=== PATIENT | male | born 1985 ===

== ENCOUNTER 2016-08-04 12:47 | Inpatient (IN) | payer OTHER ==
[~2016-08-04] VITALS: Ht 172.7 cm; Wt 101.8 kg
[2016-08-04] MEDS ORDERED: LORAZEPAM 2 MG/ML 1 ML VIAL IV STA ×2 (13:07→14:24)
[2016-08-04] MEDS ORDERED: SODIUM CHLORIDE 0.9% 1000ML 1,000 ML IV STA (13:07)
[2016-08-04 13:31] LABS: BASO % 0.3 %; BASO ABS # 0.03 K/uL (0-0.2); COMPLETE YES; EOS % 0.1 %; HEMATOCRIT 45.4 % (42-52); IG% 0.4 %; LYMPH % 20.2 %; LYMPH ABS # 2.19 K/uL (1.2-3.4); MEAN CELL VOLUME 89.4 fL (80-100); MEAN CORPUSCULAR HEMOGLOBIN 31.9 pg (25-34); MEAN CORPUSCULAR HGB CONC 35.7 g/dl (32-36); MEAN PLATELET VOLUME 10.4 fL (7.4-10.4); MONO % 6.7 %; NEUT % 72.3 %; PLATELET COUNT 349 K/uL (130-400); RED BLOOD COUNT 5.08 M/uL (4.7-6.1); WHITE BLOOD COUNT 10.82 K/uL (4.8-10.8)
--- NOTE | 2016-08-04 13:40 | DIAGNOSTIC IMAGING REPORT ---
CHEST ONE VIEW PORTABLE CLINICAL HISTORY: Overdose dyspnea COMPARISON STUDY: No previous studies for comparison. FINDINGS: The bones soft tissues and hemidiaphragms are normal. The cardiomediastinal silhouette is normal. The lungs are clear. The pulmonary vasculature is normal. IMPRESSION: Negative chest. Electronically signed by: Amarjit Aguilar M.D. 08/04/2016 1:39 PM Dictated Date/Time: 08/04/2016 1:38 PM
[2016-08-04 13:46] LABS: PARTIAL THROMBOPLASTIN RATIO 1.1; PROTHROMBIN TIME (PATIENT) 10.8 SECONDS (9.0-12.0)
[2016-08-04 13:50] LABS: URINE APPEARANCE CLEAR (CLEAR); URINE BILIRUBIN NEG (NEG); URINE COLOR YELLOW; URINE EPITHELIAL CELL AUTO 20-30 /lpf (0-5); URINE NITRITE NEG (NEG); URINE SPECIFIC GRAVITY 1.028 (1.000-1.030); UROBILINOGEN NEG (NEG)
[2016-08-04 13:51] LABS: ALT/SGPT 36 U/L (12-78); AST/SGOT 20 U/L (15-37); BLOOD UREA NITROGEN 11 mg/dl (7-18); BUN/CREATININE RATIO 13.2 (10-20); CALCIUM 8.9 mg/dl (8.5-10.1); CARBON DIOXIDE 21 mmol/L (21-32); CHLORIDE 109 mmol/L (98-107); CREATININE 0.85 mg/dl (0.60-1.40); GLUCOSE 108 mg/dl (70-99); POTASSIUM 4.1 mmol/L (3.5-5.1); SODIUM 140 mmol/L (136-145)
[2016-08-04 13:51] LABS: MANUAL MICROSCOPIC REQUIRED? NO; REVIEW REQ? NO
[2016-08-04 13:56] LABS: ALKALINE PHOSPHATASE 50 U/L (45-117)
[2016-08-04 14:01] LABS: BENZODIAZEPINE, URINE NEG (NEG); COCAINE,URINE NEG (NEG); PHENCYCLIDINE, URINE NEG (NEG)
[2016-08-04 14:18] LABS: ACETAMINOPHEN < 2 ug/ml (10-30)
[2016-08-04] MEDS ORDERED: XYLOCAINE 1%/SOD BICARB 20 ML VIAL INFIL ONE (15:00)
--- NOTE | 2016-08-04 15:58 | EMERGENCY ROOM VISIT NOTE ---
ED Visit Note Emergency Department Procedure Note I was asked to see Mr. Beyer by Dr. Skip Worthington, emergency medicine, for repair of a neck laceration he sustained in a suicide attempt. Please see Dr. Worthington's notes and orders for full information about his ED visit. Wound Repair: Complexity: Basic. Description: Approximately 12 cm laceration over the anterior neck; approximately 10 cm of the laceration is superficial and 2.4 cm of the laceration is full-thickness and is positioned just inferior to the larynx. No active bleeding. Verbal consent was obtained after the risks and benefits were explained. The skin was prepped with betadine and a sterile field set. Wound edges of the wound was anesthetized with 3.1 ml buffered 1% lidocaine. The wound was explored for foreign bodies and none found. Copious irrigation was performed using sterile saline. With direct pressure the bleeding subsided. Debridement was not performed. The wound edges were approximated using 6-0 Ethilon with 7 simple interrupted sutures. Hemostasis and excellent approximation was achieved. Antibacterial ointment and a sterile dressing applied. No complications and the patient tolerated the procedure well.
--- NOTE | 2016-08-04 16:25 | History and Physical ---
History & Physical Date & Time of Service: Aug 04, 2016 at 16:05 Chief Complaint: Benadryl Overdose@3AM/ Depression Primary Care Physician: No Doctor, Assigned History of Present Illness Source: patient Patient is a 30 year old male that presents 12 hours after an intentional overdose with diphenhydramine. The patient took 600mg (24 tabs of 25mg of Benadryl) this morning at 3am, after which he was drowsy and laid down in bed trying to sleep. He then tried to cut his throat shortly thereafter at 9am with a kitchen knife. He subsequently called the Crisis Line about his attempted suicide who called an ambulance. He also had a glass of wine last night. He said that throughout the morning he was having numbness and tingling of his extremities but that has now resolved. 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 He has no past history of suicide attempts or diagnosed depression. He has no significant medical history other than an appendectomy. He currently feels well with no further complaints and denies chest pain, shortness of breath , blurriness of vision, or agitation. Past Medical/Surgical History No active issues Family History Patient reports no known family medical history. Social History Smoking Status: Never Smoker Smokeless Tobacco Use: No Alcohol Use: socially Drug Use: none Marital Status: single Allergies Coded Allergies: Aspirin (Verified Allergy, Unknown, family blood disorder, 08/04/16) Home Medications No Active Prescriptions or Reported Meds Review of Systems Constitutional: No fever, No chills Eyes: No worsening of vision ENT: No hearing loss Respiratory: No cough, No shortness of breath Cardiovascular: No chest pain Abdomen: No pain, No nausea, No vomiting, No diarrhea, No constipation Neurologic: No memory loss, No weakness Endocrine: No fatigue Integumentary: No rash, No itch Physical Exam Vital Signs Date Time Temp Pulse Resp B/P (MAP) Pulse Ox O2 Delivery O2 Flow Rate FiO2 08/04/16 13:32 17 08/04/16 13:31 138/96 08/04/16 13:28 94 Room Air 08/04/16 13:17 21 08/04/16 13:10 94 Room Air 08/04/16 13:10 121 08/04/16 13:08 141/91 08/04/16 12:57 37.5 124 18 156/109 93 Room Air General Appearance: WD/WN, no apparent distress Head: normocephalic, atraumatic Eyes: normal inspection, sclerae normal Neck: supple, + pertinent finding (2 neck lacerations of 12 cm above one another, with [address] at the middle aspect of the inferior suture, c/d/ i) Respiratory/Chest: chest non-tender, lungs clear, normal breath sounds Cardiovascular: no edema, no gallop, + tachycardia Abdomen/GI: normal bowel sounds, non tender, soft Extremities/Musculoskelatal: normal inspection, no calf tenderness, non-tender 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 tested, no motor/sensory deficits, alert, normal mood/affect, oriented x 3 Skin: normal color Diagnostics Laboratory Results Results Past 24 Hours Test 08/04/16 13:03 08/04/16 13:15 08/04/16 13:18 Range/Units Urine Color YELLOW Urine Appearance CLEAR CLEAR Urine pH 5.0 4.5-7.5 Urine Specific [place] 1.028 1.000-1.030 Urine Protein NEG NEG Urine Glucose (UA) NEG NEG Urine Ketones NEG NEG Urine Occult Blood NEG NEG Urine Nitrite NEG NEG Urine Bilirubin NEG NEG Urine Urobilinogen NEG NEG Urine Leukocyte Esterase TRACE NEG Urine WBC (Auto) 1-5 0-5 /hpf Urine RBC (Auto) 0-4 0-4 /hpf Urine Hyaline Casts (Auto) 1-5 0-5 /lpf Urine Epithelial Cells (Auto) 20-30 0-5 /lpf Urine Bacteria (Auto) NEG NEG Urine Opiates Screen NEG NEG Urine Methadone, Qualitative NEG NEG Urine Barbiturates NEG NEG Urine Phencyclidine (PCP) Level NEG NEG Ur Amphetamine/Methamphetamine NEG NEG MDMA (Ecstasy) Screen NEG NEG Urine Benzodiazepines Screen NEG NEG Urine Cocaine Metabolite NEG NEG Urine Marijuana (THC) NEG NEG White Blood Count 10.82 4.8-10.8 K/uL Red Blood Count 5.08 4.7-6.1 M/uL Hemoglobin 16.2 14.0-18.0 g/dL Hematocrit 45.4 42-52 % Mean Corpuscular Volume 89.4 80-100 fL Mean Corpuscular Hemoglobin 31.9 25-34 pg Mean Corpuscular Hemoglobin Concent 35.7 32-36 g/dl Platelet Count 349 130-400 K/uL Mean Platelet Volume 10.4 7.4-10.4 fL Neutrophils (%) (Auto) 72.3 % Lymphocytes (%) (Auto) 20.2 % Monocytes (%) (Auto) 6.7 % Eosinophils (%) (Auto) 0.1 % Basophils (%) (Auto) 0.3 % Neutrophils # (Auto) 7.82 1.4-6.5 K/uL Lymphocytes # (Auto) 2.19 1.2-3.4 K/uL Monocytes # (Auto) 0.73 0.11-0.59 K/uL Eosinophils # (Auto) 0.01 0-0.5 K/uL Basophils # (Auto) 0.03 0-0.2 K/uL RDW Standard Deviation 40.6 36.4-46.3 fL RDW Coefficient of Variation 12.4 11.5-14.5 % Immature Granulocyte % (Auto) 0.4 % Immature Granulocyte # (Auto) 0.04 0.00-0.02 K/uL Prothrombin Time 10.8 9.0-12.0 SECONDS Prothromb Time International Ratio 1.0 0.9-1.1 Activated Partial Thromboplast Time 28.4 21.0-31.0 SECONDS Partial Thromboplastin Ratio 1.1 Sodium Level 140 136-145 mmol/L Potassium Level 4.1 3.5-5.1 mmol/L Chloride Level 109 98-107 mmol/L Carbon Dioxide Level 21 21-32 mmol/L Anion Gap 10.0 3-11 mmol/L Blood Urea Nitrogen 11 7-18 mg/dl Creatinine 0.85 0.60-1.40 mg/dl Est Creatinine Clear Calc Drug Dose 145.1 ml/min Estimated GFR () 134.6 Estimated GFR (Non- 116.1 BUN/Creatinine Ratio 13.2 10-20 Random Glucose 108 70-99 mg/dl Calcium Level 8.9 8.5-10.1 mg/dl Total Bilirubin 0.6 0.2-1 mg/dl Direct Bilirubin 0.2 0-0.2 mg/dl Aspartate Amino Transf (AST/SGOT) 20 15-37 U/L Alanine Aminotransferase (ALT/SGPT) 36 12-78 U/L Alkaline Phosphatase 50 45-117 U/L Total Creatine Kinase 119 39-308 U/L Troponin I < 0.015 0-0.045 ng/ml Total Protein 8.6 6.4-8.2 gm/dl Albumin 4.4 3.4-5.0 gm/dl Lipase 110 73-393 U/L Salicylates Level < 1.7 2.8-20 mg/dl Acetaminophen Level < 2 10-30 ug/ml Ethyl Alcohol mg/dL < 3.0 0-3 mg/dl Bedside Glucose 116 70-99 mg/dl Impression Assessment and Plan Patient is a 30 year old male that presents after an intentional diphenhydramine overdose early this morning 1) Diphenhydramine overdose - Admit to Telemetry due to tachycardia - 12.5mg Metoprolol PO NOW - One to one at bedside - 2 doses of Ativan in ED - Continue to monitor heart rate - Consult psychiatry for movement to [address] [place] [address] after medically stable - Tox Screen Normal - CBC, CMP within normal limits - Normal Troponin 2) Laceration over throat - 6 sutures placed - One to one at bedside 3) Disposition - Admit to Telemetry - Transfer to [address] once medically stable Resident Physician Supervision Note: Pt seen/examined independently. I discussed the case with the resident and agree with the findings and plan as documented in the note. Any exceptions or clarifications are listed here: 30 y/o M depression - no active medical issues Pt intentionally overdosed on Benadryl and self inflicted superficial lacerations to his own throat. Called crisis line who alerted EMS. He is tachycardic but otherwise asymptomatic at time of arrival - alert and cooperative AAO x 3 S1,2 R tachy CTAB NT,ND No CCE P: IVF - supportive measure Mental health consulted Received a tetanus shot Transfer to [facility] when clinically stable Documented By: Jake Franklin Level of Care Telemetry VTE Prophylaxis VTE Risk Assessment Done? Y/N: Yes Risk Level: Low
[2016-08-04 16:35] VITALS: BP 176/97; PULSE 134; TEMP 37; O2SAT 95; Ht 172.7 cm; Wt 101.8 kg
[2016-08-04] MEDS ORDERED: METOPROLOL TARTRATE 25 MG TAB PO ONE (17:00)
[2016-08-04 19:54] VITALS: BP 131/89; PULSE 104; TEMP 36.8; O2SAT 95
--- NOTE | 2016-08-04 20:31 | EMERGENCY ROOM VISIT NOTE ---
History Report prepared by Katya: Jose Harrington Under the Supervision of: Dr. Skip Worthington D.O. First contact with patient: 13:02 Chief Complaint: PSYCHIATRIC PROBLEMS Stated Complaint: BENADRYL OVERDOSE@3AM/ DEPRESSION History of Present Illness The patient is a 30 year old male who presents to the Emergency Room with complaints of a sudden overdose at 0300. 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 The patient states that "he does not want to be here anymore". He admits that he took the 25 caps of ZzzQuil, 25 mg of Benadryl , with intents of killing himself at 0300. The patient admits to numbness in fingers. The patient denies taking any aspiring or Tylenol. He denies past depression or anxiety, but admits he has been feeling it recently. The patient denies headache, change in vision, fevers, chest pain, shortness of breath, nausea, vomiting, diarrhea, pain with urination, and melena. Source of History: patient Onset: 0300 Position: other (global) Timing: other (sudden) Modifying Factors (Worsening): other (ZZZquil) Associated Symptoms: No fevers, No headache, No chest pain, No SOB, No nausea, No vomiting, No diarrhea, No urinary symptoms Review of Systems See HPI for pertinent positives & negatives. A total of 10 systems reviewed and were otherwise negative. Past Medical & Surgical Medical Problems: (1) Anticholinergic drug overdose (2) Attempted suicide (3) Depression (4) Intentional diphenhydramine overdose (5) Tachycardia Family History Patient reports no known family medical history. Social History Smoking Status: Unknown if Ever Smoked Smokeless Tobacco Use: Unknown Occupation Status: student Current/Historical Medications No Active Prescriptions or Reported Meds Allergies Coded Allergies: Aspirin (Verified Allergy, Unknown, family blood disorder, 08/04/16) Physical Exam Vital Signs Date Time Temp Pulse Resp B/P (MAP) Pulse Ox O2 Delivery O2 Flow Rate FiO2 08/04/16 16:01 146/94 08/04/16 15:37 127 19 95 08/04/16 15:31 144/88 08/04/16 15:07 121 16 95 08/04/16 15:01 154/105 08/04/16 14:37 123 19 96 08/04/16 14:31 148/90 08/04/16 14:07 125 20 97 08/04/16 14:01 147/95 08/04/16 13:37 129 22 95 08/04/16 13:32 17 08/04/16 13:31 138/96 08/04/16 13:28 94 Room Air 08/04/16 13:17 21 08/04/16 13:10 94 Room Air 08/04/16 13:10 121 08/04/16 13:08 141/91 08/04/16 12:57 37.5 124 18 156/109 93 Room Air Physical Exam GENERAL: Sitting up in bed disheveled alert, well appearing, well nourished, non -toxic EYE EXAM: normal conjunctiva, PERRL and EOM's grossly intact OROPHARYNX: no exudate, no erythema, lips, buccal mucosa, and tongue normal and mucous membranes are moist NECK: 2.5 cm laceration linear supple, no nuchal rigidity, no adenopathy, non- tender LUNGS: Clear to auscultation. Normal chest wall mechanics HEART: Tachycardic no murmurs, S1 normal and S2 normal ABDOMEN: abdomen soft, non-tender, normo-active bowel sounds, no masses, no rebound or guarding. BACK: Back is symmetrical on inspection and there is no deformity, no midline tenderness, no CVA tenderness. SKIN: no rashes and no bruising UPPER EXTREMITIES: upper extremities are grossly normal. LOWER EXTREMITIES: No pitting edema. NEURO EXAM: Normal sensorium, cranial nerves II-XII grossly intact, normal speech, no gross weakness of arms, no gross weakness of legs. Gross sensation intact. Medical Decision & Procedures ER Provider Diagnostic Interpretation: Radiology results as stated below per my review and the radiologist's interpretation: CHEST ONE VIEW PORTABLE CLINICAL HISTORY: Overdose dyspnea COMPARISON STUDY: No previous studies for comparison. FINDINGS: The bones soft tissues and hemidiaphragms are normal. The cardiomediastinal silhouette is normal. The lungs are clear. The pulmonary vasculature is normal. IMPRESSION: Negative chest. Electronically signed by: Amarjit Aguilar M.D. 08/04/2016 1:39 PM Dictated Date/Time: 08/04/2016 1:38 PM Laboratory Results 08/04/16 13:15 Red Blood Count 5.08, Mean Corpuscular Volume 89.4, Mean Corpuscular Hemoglobin 31.9, Mean Corpuscular Hemoglobin Concent 35.7, Mean Platelet Volume 10.4, Neutrophils (%) (Auto) 72.3, Lymphocytes (%) (Auto) 20.2, Monocytes (%) (Auto) 6.7, Eosinophils (%) (Auto) 0.1, Basophils (%) (Auto) 0.3, Neutrophils # (Auto) 7.82, Lymphocytes # (Auto) 2.19, Monocytes # (Auto) 0.73, Eosinophils # (Auto) 0.01, Basophils # (Auto) 0.03 08/04/16 13:15 Test 08/04/16 13:03 08/04/16 13:15 08/04/16 13:18 Urine Color YELLOW Urine Appearance CLEAR (CLEAR) Urine pH 5.0 (4.5-7.5) Urine Specific [place] 1.028 (1.000-1.030) Urine Protein NEG (NEG) Urine Glucose (UA) NEG (NEG) Urine Ketones NEG (NEG) Urine Occult Blood NEG (NEG) Urine Nitrite NEG (NEG) Urine Bilirubin NEG (NEG) Urine Urobilinogen NEG (NEG) Urine Leukocyte Esterase TRACE (NEG) Urine WBC (Auto) 1-5 /hpf (0-5) Urine RBC (Auto) 0-4 /hpf (0-4) Urine Hyaline Casts (Auto) 1-5 /lpf (0-5) Urine Epithelial Cells (Auto) 20-30 /lpf (0-5) Urine Bacteria (Auto) NEG (NEG) Urine Opiates Screen NEG (NEG) Urine Methadone, Qualitative NEG (NEG) Urine Barbiturates NEG (NEG) Urine Phencyclidine (PCP) Level NEG (NEG) Ur Amphetamine/Methamphetamine NEG (NEG) MDMA (Ecstasy) Screen NEG (NEG) Urine Benzodiazepines Screen NEG (NEG) Urine Cocaine Metabolite NEG (NEG) Urine Marijuana (THC) NEG (NEG) White Blood Count 10.82 K/uL (4.8-10.8) Red Blood Count 5.08 M/uL (4.7-6.1) Hemoglobin 16.2 g/dL (14.0-18.0) Hematocrit 45.4 % (42-52) Mean Corpuscular Volume 89.4 fL (80-100) Mean Corpuscular Hemoglobin 31.9 pg (25-34) Mean Corpuscular Hemoglobin Concent 35.7 g/dl (32-36) Platelet Count 349 K/uL (130-400) Mean Platelet Volume 10.4 fL (7.4-10.4) Neutrophils (%) (Auto) 72.3 % Lymphocytes (%) (Auto) 20.2 % Monocytes (%) (Auto) 6.7 % Eosinophils (%) (Auto) 0.1 % Basophils (%) (Auto) 0.3 % Neutrophils # (Auto) 7.82 K/uL (1.4-6.5) Lymphocytes # (Auto) 2.19 K/uL (1.2-3.4) Monocytes # (Auto) 0.73 K/uL (0.11-0.59) Eosinophils # (Auto) 0.01 K/uL (0-0.5) Basophils # (Auto) 0.03 K/uL (0-0.2) RDW Standard Deviation 40.6 fL (36.4-46.3) RDW Coefficient of Variation 12.4 % (11.5-14.5) Immature Granulocyte % (Auto) 0.4 % Immature Granulocyte # (Auto) 0.04 K/uL (0.00-0.02) Prothrombin Time 10.8 SECONDS (9.0-12.0) Prothromb Time International Ratio 1.0 (0.9-1.1) Activated Partial Thromboplast Time 28.4 SECONDS (21.0-31.0) Partial Thromboplastin Ratio 1.1 Anion Gap 10.0 mmol/L (3-11) Est Creatinine Clear Calc Drug Dose 145.1 ml/min Estimated GFR () 134.6 Estimated GFR (Non- 116.1 BUN/Creatinine Ratio 13.2 (10-20) Calcium Level 8.9 mg/dl (8.5-10.1) Total Bilirubin 0.6 mg/dl (0.2-1) Direct Bilirubin 0.2 mg/dl (0-0.2) Aspartate Amino Transf (AST/SGOT) 20 U/L (15-37) Alanine Aminotransferase (ALT/SGPT) 36 U/L (12-78) Alkaline Phosphatase 50 U/L (45-117) Total Creatine Kinase 119 U/L (39-308) Troponin I < 0.015 ng/ml (0-0.045) Total Protein 8.6 gm/dl (6.4-8.2) Albumin 4.4 gm/dl (3.4-5.0) Lipase 110 U/L (73-393) Salicylates Level < 1.7 mg/dl (2.8-20) Acetaminophen Level < 2 ug/ml (10-30) Ethyl Alcohol mg/dL < 3.0 mg/dl (0-3) Bedside Glucose 116 mg/dl (70-99) Laboratory results per my review. Medications Administered Medications (Trade) Dose Ordered Sig/Tre Route Start Time Stop Time Status Last Admin Dose Admin Sodium Chloride 1,000 ml @ 999 mls/hr Q1H1M STAT IV 08/04/16 13:07 08/04/16 14:07 DC 08/04/16 13:33 999 MLS/HR Lorazepam (Ativan Inj) 1 mg NOW STAT IV 08/04/16 13:07 08/04/16 13:09 DC 08/04/16 13:34 1 MG Lorazepam (Ativan Inj) 1 mg NOW STAT IV 08/04/16 14:24 08/04/16 14:25 DC 08/04/16 14:51 1 MG ECG Indication: other (overdose) Rate (beats per minute): 121 Rhythm: sinus tachycardia Findings: no ectopy, other (normal axis) ED Course ED COURSE: Vital signs were reviewed and showed tachycardic and hypertension. The patients medical record was reviewed The above diagnostic studies were performed and reviewed. ED treatments and interventions as stated above. Medication Reconciliation: I attest that I have personally reviewed the patient' s current medication list. 1301: The patient was evaluated in room A03. A complete history and physical examination was performed. 1307: Ativan Injection 1 mg IV, Sodium Chloride 1000 ml @ 999 mls/hr IV. 1335: I talked with poison control and they recommended fluids. 1424: Ativan Injection 1 mg IV. 1444: I reevalutated the patient and he is resting comfortably. I spoke with Dr. Franklin, [facility] Hospitalist. He understands the patent's condition and agrees to accept the patient. The patient will be further evaluated. Medical Decision Differential diagnoses includes but is not limited to toxic, metabolic, infectious, traumatic, cardiac, neurologic, hematologic, psychiatric and inflammatory etiologies. Patient is a 30-year-old male who presents the ER for taking 25 tabs of Benadryl which were 25 mg apiece to kill himself. He also cut his neck as well. He has a small 2 cm laceration was repaired by my PA. Patient has not complaints but did feel his heart racing. He was tachycardic in the 130s. He was given 2 doses of IV Ativan. Heart rate did come down slightly secondary to the anticholinergic overdose. I did discuss his case with poison control and they agreed with the treatment of Ativan. EKG was unremarkable. He was monitored closely and admitted to internal medicine for sinus tachycardia secondary to anticholinergic overdose. He was noted to internal medicine for suicidal evaluations with anticholinergic overdose. Consults Time Called: 1335 Consulting Physician: Poison control Returned Call: 1335 I talked with poison control regarding the patient's case and they recommended fluids Additional Consults: Time Called: 1444 Consulted Physician: Dr. Franklin [facility] Hospitalist Returned Call: 1444 Additional Comments: I reevalutated the patient and he is resting comfortably. I spoke with Dr. Franklin, [facility] Hospitalist. He understands the patent's condition and agrees to accept the patient. The patient will be further evaluated. Impression Primary Impression: Anticholinergic drug overdose Additional Impressions: Attempted suicide Intentional diphenhydramine overdose Laceration Critical Care I have personally spent 35 minutes of critical care time in the direct management of this patient. This includes bedside care, interpretation of diagnostic studies, and testing, discussion with consultants, patient, and family members, and other required patient management activities. This 35 minutes is in excess of all separately billable procedures. Scribe Attestation The scribe's documentation has been prepared under my direction and personally reviewed by me in its entirety. I confirm that the note above accurately reflects all work, treatment, procedures, and medical decision making performed by me. Departure Information Dispostion Being Evaluated By Hospitalist (Dr. Franklin) Prescriptions No Active Prescriptions or Reported Meds Referrals No Doctor, Assigned (PCP) Patient Instructions My [facility] Problem Qualifiers Primary Impression: Anticholinergic drug overdose Encounter type: initial encounter Injury intent: intentional self-harm Qualified Codes: T44.3X2A - Poisoning by other parasympatholytics [ anticholinergics and antimuscarinics] and spasmolytics, intentional self-harm, initial encounter Additional Impressions: Intentional diphenhydramine overdose Encounter type: initial encounter Qualified Codes: T45.0X2A - Poisoning by antiallergic and antiemetic drugs, intentional self-harm, initial encounter
[2016-08-04] MEDS ORDERED: NURSING VERBAL MED ORDER ONE (22:00)
[2016-08-04] MEDS ORDERED: LORAZEPAM 0.5 MG TAB PO PRN (22:30)
[2016-08-04 23:11] VITALS: BP 141/93; PULSE 104; TEMP 36.9; O2SAT 96
[2016-08-05] VITALS: O2SAT 96
[2016-08-05 03:44] VITALS: BP 108/63; PULSE 96; TEMP 36.8; O2SAT 97
[2016-08-05 04:00] VITALS: O2SAT 97
[2016-08-05 07:20] VITALS: BP 138/93; PULSE 93; TEMP 36.4; O2SAT 97
--- NOTE | 2016-08-05 11:41 | Medical Student: BHU Only ---
Psychiatric Evaluation Medical In-patient Psychiatric Consult IDENTIFYING DATA: James Beyer is a 30-year-old male who was born in [facility] but is currently living in [place], [place]. There is a current 302 petition on his chart if needed. CHIEF COMPLAINT: "feeling numb for the past 2 weeks". HISTORY OF PRESENT ILLNESS: James denies any past psychiatric history, but acknowledges that he took 24 tabs of 25mg Benedryl at 3am on 08/04/2016 with suicidal ideation. He then states that at 9am on 08/04/2016 he used a kitchen knife to slice his throat, again with suicidal ideation, which required 6 sutures in the ED at [facility]. 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 He notes associated symptoms of changes in his sleeping patterns, from sleeping 11pm-7am each night to difficulty falling asleep until 5am and sleeping until noon each day. James notes that for the past 2 weeks he has had intermittent suicidal ideations without a specific plan until 2016. He specifically denies any current suicidal ideation. James also denies change in his levels of energy, concentration, appetite, psychomotor skills, and interest in things he normally enjoys. He states he only has funding for his PhD program through the summer, but does not think he will finish his project in time. He reports if he does not finish his degree before going back to [facility], he will have to pay back his program fee of about $200,000; however if he finishes his PhD, he denies accruing any student loan debt. James states that his current plan is to leave [place] and go back to [facility], where his entire support system (outside of 2 friends in the area) reside. He notes that once he is back in [facility], he will figure out the financial repercussions remotely. Patient denies access to guns, feelings of anxiety, heart palpitations, panic, chest pain, psychosis, previous eating disorder, OCD tendencies, PTSD, and symptoms of leann. Risk of violence to self within the last 6 months: yes, suicide attempt 2016 (see HPI for more information). Patient denies any other history of suicidal attempts or violence to self in last 6 months, including other self- injurious behavior. Risk of violence to others within the last 6 months: no. Patient states he has "never had any ideas to hurt others." CURRENT HOME MEDICATIONS: Reported Home Medications Medications Dose Route/Sig Max Daily Dose Days Date Category No Active Prescriptions or Reported Medications Rx PAST PSYCHIATRIC HISTORY: Current outpatient mental health treatment: patient denies. Prior outpatient mental health treatment: patient denies. Prior psychiatric hospitalizations: patient denies. Prior medication trials: patient denies. Prior suicide attempts: patient denies any suicide attempts prior to 08/04/2016. Access to weapons: patient denies access to weapons. PAST MEDICAL HISTORY: Current primary care practitioner is [facility], but no specific primary care provider. medical history: patient denies surgical history: patient denies history of head injury: patient denies history of seizure: patient denies history of iv drug use: patient denies ALLERGIES: Aspirin. FAMILY HISTORY: Mental Health: patient denies Substance Abuse: paternal grandfather was an alcoholic Suicide: patient denies SUBSTANCE USE HISTORY: Patient denies any substance abuse. PERSONAL HISTORY: Born: [facility]. Parents and patient's whole support system (outside a couple of friends in the area) live in [facility]. Early development: patient denies any issues or delays in developmental milestones. Education: currently writing his thesis statement for his PhD at [employer]. 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 Relationship History: single. Children: patient denies. Legal History: patient denies history of DUIs or disorderly conducts. Physical abuse history: patient denies. Emotional/psychological abuse history: patient denies. ROS: CONSTITUTIONAL: patient denies. HEENT: patient denies. SKIN: patient denies. CARDIOVASCULAR: patient specifically denies heart palpitations. RESPIRATORY: patient denies. GASTROINTESTINAL: patient denies. GENITOURINARY: patient denies. NEUROLOGICAL: patient denies. MUSCULOSKELETAL: patient denies. PSYCHIATRIC: patient denies current suicidal ideations since being in the hospital. Vital Signs Past 12 Hours Date Time Temp Pulse Resp B/P (MAP) Pulse Ox O2 Delivery O2 Flow Rate FiO2 08/05/16 07:20 36.4 93 18 138/93 (108) 97 Room Air 08/05/16 04:00 97 Room Air 08/05/16 03:44 36.8 96 16 108/63 (78) 97 Room Air 08/05/16 00:00 96 Room Air Labs Past 24 hours Test 08/04/16 13:03 08/04/16 13:15 08/04/16 13:18 Urine Color YELLOW Urine Appearance CLEAR Urine pH 5.0 Urine Specific [place] 1.028 Urine Protein NEG Urine Glucose (UA) NEG Urine Ketones NEG Urine Occult Blood NEG Urine Nitrite NEG Urine Bilirubin NEG Urine Urobilinogen NEG Urine Leukocyte Esterase TRACE Urine WBC (Auto) 1-5 Urine RBC (Auto) 0-4 Urine Hyaline Casts (Auto) 1-5 Urine Epithelial Cells (Auto) 20-30 Urine Bacteria (Auto) NEG Urine Opiates Screen NEG Urine Methadone, Qualitative NEG Urine Barbiturates NEG Urine Phencyclidine (PCP) Level NEG Ur Amphetamine/Methamphetamine NEG MDMA (Ecstasy) Screen NEG Urine Benzodiazepines Screen NEG Urine Cocaine Metabolite NEG Urine Marijuana (THC) NEG White Blood Count 10.82 Red Blood Count 5.08 Hemoglobin 16.2 Hematocrit 45.4 Mean Corpuscular Volume 89.4 Mean Corpuscular Hemoglobin 31.9 Mean Corpuscular Hemoglobin Concent 35.7 Platelet Count 349 Mean Platelet Volume 10.4 Neutrophils (%) (Auto) 72.3 Lymphocytes (%) (Auto) 20.2 Monocytes (%) (Auto) 6.7 Eosinophils (%) (Auto) 0.1 Basophils (%) (Auto) 0.3 Neutrophils # (Auto) 7.82 Lymphocytes # (Auto) 2.19 Monocytes # (Auto) 0.73 Eosinophils # (Auto) 0.01 Basophils # (Auto) 0.03 RDW Standard Deviation 40.6 RDW Coefficient of Variation 12.4 Immature Granulocyte % (Auto) 0.4 Immature Granulocyte # (Auto) 0.04 Prothrombin Time 10.8 Prothrombin Time INR 1.0 PTT 28.4 Partial Thromboplastin Ratio 1.1 Sodium Level 140 Potassium Level 4.1 Chloride Level 109 Carbon Dioxide Level 21 Anion Gap 10.0 Blood Urea Nitrogen 11 Creatinine 0.85 Est Creatinine Clear Calc Drug Dose 145.1 Estimated GFR () 134.6 Estimated GFR (Non- 116.1 BUN/Creatinine Ratio 13.2 Random Glucose 108 Calcium Level 8.9 Total Bilirubin 0.6 Direct Bilirubin 0.2 Aspartate Amino Transferase (AST) 20 Alanine Aminotransferase (ALT) 36 Alkaline Phosphatase 50 Total Creatine Kinase 119 Troponin I < 0.015 Total Protein 8.6 Albumin 4.4 Lipase 110 Salicylates Level < 1.7 Acetaminophen Level < 2 Ethyl Alcohol mg/dL < 3.0 POC Glucose 116 MENTAL STATUS EXAM: Appearance is that of a casually and appropriately dressed male who appears his stated age. The patient is generally cooperative with the interview. Eye contact is good. No abnormal motor behavior. Speech: normal volume, rate, and tone. Affect: isolation of affect. Mood: "numb , not feeling much". Thought process: clear, linear, rational. Thought content: minimizing current situation. Patient denies current suicidal or homicidal ideations. Perception: reality based without delusions. Cognition: memory, language, and attention appear grossly intact. Intelligence seems consistent with level of education Insight is estimated to be limited. Judgment is estimated to be limited. INVENTORY OF ASSETS: * strengths: continued interest in activities he enjoys (reading/watching tv), plans for the future * resources: supportive family in [facility] and supportive friends in the area, desire to seek psychiatric treatment in [facility] once he returns there * needs: follow-up psychiatric treatment, both in [place] and in [facility] depending on where he will be living. RISK ASSESSMENT: * Risk factors (select all that apply): Male, single, lack of extensive support system in the area, lack of out-patient mental health providers, impulsive attempt * Protective factors (select all that apply): Employed, Stable relationships, Supportive family, Absence of risk factors (, fall in social status, access to guns, chronic health conditions, history of any mental health diagnosis/substance abuse disorders, history of previous suicidal attempt, family history of suicide, previous psychiatric hospitalization, and feeling of hopelessness). DIAGNOSTIC IMPRESSION: James is a 30 year old male, with recent intentional overdose on Benadryl and suicidal intention using a knife to cut his throat on 08/04/2016. His recent suicidal attempt seems situational to finishing his PhD and lacking his main familial support system in the area. He has no history of previously diagnosed psychiatric condition, but with current threat to his safety, in-patient hospitalization is recommended. Patient does not meet criteria of major depressive episode/disorder, making adjustment disorder or unspecified depressive disorder more likely. DSM-V DIAGNOSIS: Unspecified depressive disorder RECOMMENDATIONS: 1. Safety, secondary to recent history of suicidal ideation a. In-patient psychiatry for patient's safety. Ask patient to sign-in voluntarily, but also acknowledge his 302 petition in his chart if he refuses to sign-in voluntarily. b. Suicide precautions will be maintained to help provide for patient safety while in the hospital. 2. Unspecified depressive disorder a. Work with Medical team to transfer to U once patient is cleared medically. b. Talk with patient about starting SSRI for depression once in-patient psychiatry. Date of Service: Aug 05, 2016.
[2016-08-05 11:48] VITALS: BP 139/94; PULSE 111; TEMP 36.7; O2SAT 96
--- NOTE | 2016-08-05 12:48 | Discharge Instructions ---
Discharge Instructions Date of Service Aug 05, 2016. Admission Reason for Admission: Intentional Diphenhydramine Overdose, Discharge Discharge Diagnosis / Problem: intentional overdose Discharge Goals Goal(s): Diagnostic testing, Therapeutic intervention Activity Recommendations Activity Limitations: resume your previous activity . Current Hospital Diet Patient's current hospital diet: N/A, Vegetarian Diet Discharge Diet Recommended Diet: Regular Diet Pending Studies Studies pending at discharge: no Medical Emergencies . Who to Call and When: Medical Emergencies: If at any time you feel your situation is an emergency, please call 911 immediately. . Non-Emergent Contact Non-Emergency issues call your: Primary Care Provider Call Non-Emergent contact if: temperature is above 101, your pain is unusual for you . . "Provider Documentation" section prepared by Maurice Bower. . VTE Core Measure Inpt VTE Proph given/why not?: Treatment not indicated
[2016-08-05] MEDS ORDERED: NURSING VERBAL MED ORDER ONE (13:00)
--- NOTE | 2016-08-05 13:05 | Psychiatric Consultation ---
Psychiatric Consultation Date of Service: Aug 05, 2016. 30 yo male s/p OD of benadryl, act of furtherance with lac to neck with 6 sutures and did not seek treatment immediately. On MSE he minimizes SI but clearly endorses it was an attempt and is aware that inpatient psychiatric care is recommended. Case reviewed briefly with Dr. Bower, patient currently agreeable to inpatient hospitalization on 201. If would refuse to sign I would recommended following through on the 302 petition. As it is anticipated that he will be transferred to [facility] today, will include additional history in H&P for U.
[2016-08-05] MEDS ORDERED: SODIUM CHLORIDE 0.65% NA SOLN 45 ML (OCEAN) PRN (13:15)
[2016-08-05] MEDS ORDERED: ACETAMINOPHEN 325 MG TAB PO PRN (13:15)
[2016-08-05] MEDS ORDERED: BISMUTH SUBSALICYLATE PER ML OMNICELL CHARGE PO PRN (13:15)
[2016-08-05] MEDS ORDERED: ALUMINUM/MAGNESIUM SUSP 30 ML UDC PO PRN (13:15)
[2016-08-05] MEDS ORDERED: MAGNESIUM HYDROXIDE SUSP 30 ML UDC PO PRN (13:15)
[2016-08-05 14:55] VITALS: BP 139/94; PULSE 111; TEMP 36.7; O2SAT 96
--- NOTE | 2016-08-05 15:03 | Discharge Summary ---
Discharge Summary Date of Service Aug 05, 2016. Discharge Summary Admission Date: Aug 04, 2016 at 16:05 Discharge Date: Aug 05, 2016 Discharge Disposition: Acute care mental health Principal Diagnosis: intentional overdose Medication Reconciliation Medication Profile: No Active Prescriptions or Reported Meds Discharge Exam Review of Systems: Constitutional: No fever, No chills Respiratory: No cough, No sputum Cardiovascular: No chest pain, No orthopnea, No PND Abdomen: No pain, No nausea, No vomiting Musculoskeletal: No joint pain Integumentary: + problem reported (sutures placed in neck) Physical Exam: General Appearance: WD/WN, no apparent distress Eyes: PERRL, EOMI Cardiovascular: regular rate, rhythm, no murmur Abdomen / GI: normal bowel sounds, non tender, soft Neurologic/Psychiatric: alert, oriented x 3 Hospital Course 30 year old male that presents after an intentional diphenhydramine overdose Diphenhydramine overdose- 12.5mg Metoprolol 2 doses of Ativan in ED Consult psychiatry [address] [place] [address] acceptable to move to behavioral health unit Laceration over throat- 6 sutures placed, remove in 5-7 days Total Time Spent: Greater than 30 minutes This includes examination of the patient, discharge planning, medication reconciliation, and communication with other providers. Discharge Instructions Please refer to the electronic Patient Visit Report (Discharge Instructions) for additional information.
== END 2016-08-05 14:30 | DRG 918 ==
LOC: C.EDA 12:53 → EDBD 12:53 → C.2E 16:05 → ENRESERV 16:15
PROVIDERS: ADMIT Internal Medicine; ATTEND Internal Medicine
PROC: 0HQ4XZZ Repair Neck Skin, External Approach (ICD-10-PCS; principal; 2016-08-04)
DX: T45.0X2A Poisoning by antiallergic and antiemetic drugs, intentional self-harm, initial encounter (principal); T44.3X2A Poisoning by other parasympatholytics [anticholinergics and antimuscarinics] and spasmolytics, intentional self-harm, initial encounter; S11.81XA Laceration without foreign body of other specified part of neck, initial encounter; X78.9XXA Intentional self-harm by unspecified sharp object, initial encounter; R00.0 Tachycardia, unspecified

== ENCOUNTER 2016-08-05 14:30 | Inpatient (IN) | payer OTHER ==
[~2016-08-05] VITALS: Ht 172.7 cm; Wt 101.8 kg
[2016-08-05 16:18] VITALS: BP 128/90; PULSE 102; TEMP 36.7; BMI 34.1
[2016-08-05] MEDS ORDERED: MAGNESIUM HYDROXIDE SUSP 30 ML UDC PO PRN (16:30)
[2016-08-05] MEDS ORDERED: ACETAMINOPHEN 325 MG TAB PO PRN (16:30)
[2016-08-05] MEDS ORDERED: ALUMINUM/MAGNESIUM SUSP 30 ML UDC PO PRN (16:30)
[2016-08-05] MEDS ORDERED: SODIUM CHLORIDE 0.65% NA SOLN 45 ML (OCEAN) PRN (16:30)
[2016-08-05] MEDS ORDERED: TRAZODONE HCL 50 MG TAB PO PRN (16:45)
--- NOTE | 2016-08-05 16:48 | Psychiatric History & Physical ---
History Date of Service Aug 05, 2016. Identifying Data James Beyer is a 30-year-old male who was born in [facility] but is currently living in [place], [place]. There is a current 302 petition on his chart as brought to ED s/p diphenhydramine OD with act of further of cutting his throat as a suicide attempt. Chief Complaint "I feel numb". History of Present Illness James denies any past psychiatric history, but acknowledges that he took 24 tabs of 25mg Benedryl at 3am on 08/04/2016 with suicidal ideation. He then states that at 9am on 08/04/2016 he used a kitchen knife to "slice" his throat, requiring 6 sutures in the ED at [facility]. James has been feeling depressed for 2 weeks about his inability to finish his PhD at [employer]. He notes sleep phase shift. James notes that for the past 2 weeks he has had intermittent suicidal ideations without a specific plan until last night. James also denies change in his levels of energy, concentration, appetite, psychomotor skills, and interest in things he normally enjoys. He states he only has funding for his PhD program through the summer, but does not think he will finish his project in time. He reports if he does not finish his degree before going back to [facility], he will have to pay back his program fee of about $200,000. James states that his current plan is to leave [place] and go back to [facility], where his entire support system (outside of 2 friends in the area) reside. He notes that once he is back in [facility], he will figure out the financial repercussions remotely. Patient denies access to guns, feelings of anxiety, heart palpitations, panic, chest pain, psychosis, previous eating disorder, OCD tendencies, PTSD, and symptoms of leann. Past Psychiatric History Current OP Treatment: no current treatment Prior OP Treatment: no prior treatment Access to a Gun: No Suicide Attempts: No Past Medication Trials none Past Medical/Surgical History History of Concussion/Seizure: No (1) Anticholinergic drug overdose (2) Tachycardia Allergies Allergies: Coded Allergies: Aspirin (Verified Allergy, Unknown, family blood disorder, 08/04/16) Home Medications No Active Prescriptions or Reported Meds Family History Patient reports no known family medical history. 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 Examination Physical Examination A physical exam was performed today on the medical floor by Dr. Bower. I accept his inpatient physical assessment as medical clearance for psych admission. Vital Signs stable on transfer, see other visit Laboratory Results Test 08/04/16 13:03 08/04/16 13:15 08/04/16 13:18 08/05/16 16:34 Urine Color YELLOW Urine Appearance CLEAR Urine pH 5.0 Urine Specific [place] 1.028 Urine Protein NEG Urine Glucose (UA) NEG Urine Ketones NEG Urine Occult Blood NEG Urine Nitrite NEG Urine Bilirubin NEG Urine Urobilinogen NEG Urine Leukocyte Esterase TRACE H Urine WBC (Auto) 1-5 Urine RBC (Auto) 0-4 Urine Hyaline Casts (Auto) 1-5 Urine Epithelial Cells (Auto) 20-30 H Urine Bacteria (Auto) NEG Urine Opiates Screen NEG Urine Methadone, Qualitative NEG Urine Barbiturates NEG Urine Phencyclidine (PCP) Level NEG Ur Amphetamine/Methamphetamine NEG MDMA (Ecstasy) Screen NEG Urine Benzodiazepines Screen NEG Urine Cocaine Metabolite NEG Urine Marijuana (THC) NEG White Blood Count 10.82 H Red Blood Count 5.08 Hemoglobin 16.2 Hematocrit 45.4 Mean Corpuscular Volume 89.4 Mean Corpuscular Hemoglobin 31.9 Mean Corpuscular Hemoglobin Concent 35.7 Platelet Count 349 Mean Platelet Volume 10.4 Neutrophils (%) (Auto) 72.3 Lymphocytes (%) (Auto) 20.2 Monocytes (%) (Auto) 6.7 Eosinophils (%) (Auto) 0.1 Basophils (%) (Auto) 0.3 Neutrophils # (Auto) 7.82 H Lymphocytes # (Auto) 2.19 Monocytes # (Auto) 0.73 H Eosinophils # (Auto) 0.01 Basophils # (Auto) 0.03 RDW Standard Deviation 40.6 RDW Coefficient of Variation 12.4 Immature Granulocyte % (Auto) 0.4 Immature Granulocyte # (Auto) 0.04 H Prothrombin Time 10.8 Prothrombin Time INR 1.0 PTT 28.4 Partial Thromboplastin Ratio 1.1 Sodium Level 140 Potassium Level 4.1 Chloride Level 109 H Carbon Dioxide Level 21 Anion Gap 10.0 Blood Urea Nitrogen 11 Creatinine 0.85 Est Creatinine Clear Calc Drug Dose 145.1 Estimated GFR () 134.6 Estimated GFR (Non- 116.1 BUN/Creatinine Ratio 13.2 Random Glucose 108 H Calcium Level 8.9 Total Bilirubin 0.6 Direct Bilirubin 0.2 Aspartate Amino Transferase (AST) 20 Alanine Aminotransferase (ALT) 36 Alkaline Phosphatase 50 Total Creatine Kinase 119 Troponin I < 0.015 Total Protein 8.6 H Albumin 4.4 Lipase 110 Salicylates Level < 1.7 L Acetaminophen Level < 2 L Ethyl Alcohol mg/dL < 3.0 POC Glucose 116 H Thyroid Stimulating Hormone (TSH) Pending Mental Examination During interview pt is: alert and oriented Appearance: appropriately groomed Eye contact is: fair Motor behavior is: no abnormal motor movements Speech: other (quiet) Affect: depressed Mood is: anxious, other ("not suicidal") Thought process: clear, coherent Thought content: reality based without delusions Suicidal thought are: denied Homicidal thoughts are: denied Hallucinations: denies auditory, denies visual Cognition: memory grossly intact, attention grossly intact, language grossly intact Intelligence estimated to be: consistent with level of education Insight: limited Judgement: limited Impression / Recommendations Impression 30 yo male s/p suicide attempt (Benadryl OD and cutting at throat requiring 6 sutures) with risk of financial issues given risk of not finishing his PhD and limited local support. He ultimately signed 201 voluntary. Inventory Assets Strengths: intelligence, close relationship with family in [place] Risk Factors Assessment Male: Yes /single/: Yes Higher / Fall in social status: Yes Access to guns: No Protective Factors Assessment Employed: Yes Supportive family: Yes Recommendations (1) Depression 08/05--unspecified depressive disorder most appropriate diagnosis. The patient is admitted to [facility] ([facility]) on q 15 min checks ( behavioral with suicide precautions) for safety. The patient will participate in group, recreational and milieu therapies and will be offered additional individual and family sessions as clinically appropriate. Will discuss possible SSRI trial tomorrow as patient is currently overwhelmed. No evidence of anticholinergic delirium. Will not order prn Vistaril given amount of benadryl, trazodone prn sleep instead. CPT Code Initial Hospital Care: 39877
[2016-08-06 07:14] VITALS: BP_SYST 118; BP_SYST 124; BP_DIAS 75; PULSE 80; TEMP 36.8
--- NOTE | 2016-08-06 16:43 | Psychiatric Progress Notes ---
Progress Note Date of Service Aug 06, 2016. Chief Complaint "feeling better, making a decision about withdrawing from program has made a big difference ". Subjective Patient was seen & assessed interval progress reviewed with nursing. pt shared how been under increased emotional distress with anxiety and towards worsening mood and feeling trapped over past 2 or so weeks prior to his suicide attempt. Pt had some SI that was increasing over the few days beofre hte attempt. He denied depressive symptoms or bothersome anxiety prior to that. He has decided to leave the [employer] PhD program and return to [place]. He is aiming to establish the withdrawal and to make plans to fly home to [place]. 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 He is weary of telling his mother about this while inpt since not wanting to make her concerned. He has been having a female friend visit him and has begun talking o his other close peers about his stressors and plans and is feeling significant support from him. He thinks he was struggling so much because he was not allowing himself to actually allow withdrawing form the program feeling he should complete it and that he was not sharing his tensions with anyone. However now that he has made the decision to withdrawal he feels a great sesne of relief. He also feels the after effects of leaving the program will be manageable. He is seeking to see a therapist in [place] He is feeling that antidepressant medication is not needed at this time since he thinks it was more an acute stressor that is being dealt with and that therapist would likely be sufficient. his appetite and sleep has been intact while on the unit per pt. He denied manic symptoms or psychotic features or further SI and denied HI or thoughts towards self injury. Review of Systems Constitutional: No fever, No chills, No sweats, No weight loss, No weakness, No fatigue, No problem reported Respiratory: No cough, No sputum, No wheezing, No shortness of breath, No dyspnea on exertion, No dyspnea at rest, No hemoptysis, No problem reported Cardiovascular: No chest pain, No orthopnea, No PND, No edema, No claudication , No palpitations, No problem reported Abdomen: No pain, No nausea, No vomiting, No diarrhea, No constipation, No GI bleeding, No problem reported Musculoskeletal: No joint pain, No muscle pain, No swelling, No calf pain, No problem reported Neurologic: No memory loss, No paralysis, No weakness, No numbness/tingling, No vertigo, No balance problems, No problem reported Psychiatric: No depression symptoms, No anhedonism, No anxiety, No insomnia, No substance abuse, No problem reported Sleep Information Total Hours of Sleep: 6.50 Meal Information Percent of Breakfast Consumed: 100 Percent of Lunch Consumed: 100 Percent of Dinner Consumed: 100 Mental Status Exam During interview pt is: alert and oriented Appearance: appropriately groomed Eye contact is: good Motor behavior is: no abnormal motor movements Speech: other (quiet) Affect: euthymic Mood is: other ("much better, calm") Thought process: clear, coherent Thought content: reality based without delusions Suicidal thought are: denied Homicidal thoughts are: denied Hallucinations: denies auditory, denies visual Cognition: memory grossly intact, attention grossly intact, language grossly intact Intelligence estimated to be: consistent with level of education Insight: fair Judgement: impaired Impression 30 yo male s/p suicide attempt (Benadryl OD and cutting at throat requiring 6 sutures) with risk of financial issues given risk of not finishing his PhD and limited local support. He ultimately signed 201 voluntary. He is open to therapy appts. He is not open to antidepressant medication at this time. He states he has decided to withdraw from [facility] and return to [place] to live with parents. He is hesitant to do a family meeting with parents though. He is having a peer visit that appears to be go well. Pt does appear to be having a sense of relief over his decision but monitoring for flight into health over actual stabilization and aiming for more full risk mitigation given seriousness of suicidal behaviors. Plan (1) Depression 08/05--unspecified depressive disorder most appropriate diagnosis. The patient is admitted to [facility] ([facility] inpatient mental health unit) on q 15 min checks ( behavioral with suicide precautions) for safety. The patient will participate in group, recreational and milieu therapies and will be offered additional individual and family sessions as clinically appropriate. Will discuss possible SSRI trial tomorrow as patient is currently overwhelmed. No evidence of anticholinergic delirium. Will not order prn Vistaril given amount of Benadryl, trazodone prn sleep instead. 08/06- pt refusing antidepressant med at this time. encouraging family meeting with mother, pt considering but was resistant as explaining and exploring this monitor for potential ongoing depressive/anxiety symptoms and for symptoms that could have been pre-dating past month and might go beyond just stemming from stressor that is being addressed. address withdrawal from [employer] plans. consider aftercare appt for once discharged but before leaves country, aiming to set up aftercare for [place] for once will be there. trazodone prn insomnia Discharge / Aftercare Planning Primary Care Physician: Name: [facility] Therapist: Name: greg Poolroom/Poolhall Manager: Name: greg Visit Code E&M Code: 83151 Inventory Assets Strengths: intelligence, close relationship with family in [place] Risk Factors Assessment Male: Yes /single/: Yes Higher / Fall in social status: Yes Protective Factors Assessment Employed: Yes Supportive family: Yes Data Vital Signs Last 24 Hrs: Date Time Temp Pulse Resp B/P (MAP) Pulse Ox O2 Delivery O2 Flow Rate FiO2 08/06/16 07:14 36.8 80 16 118/75 124/75 Lab Results Last 24 Hrs: Last 24 Hours Test 08/05/16 18:19 Thyroid Stimulating Hormone (TSH) 1.410 uIu/ml
[2016-08-07 07:01] VITALS: Ht 172.7 cm; Wt 101.8 kg
[2016-08-07 07:17] VITALS: BP_SYST 101; BP_SYST 121; BP_DIAS 68; BP_DIAS 84; PULSE 79; PULSE 93; TEMP 36.6
--- NOTE | 2016-08-07 14:35 | Psychiatric Progress Notes ---
Progress Note Date of Service Aug 07, 2016. Chief Complaint "feeling good". Subjective Patient was seen & assessed interval progress reviewed with nursing. Pt endorsed feeling good and deneid depressive symptoms. He denied SI. no HI, no manic symptoms exhibited or described. He endorsed having good visits with several peers yesterday and is attending groups. He is hesitant to do a family meeting with parents on the phone while in the hospital, preferring to review with her his decision to go back to [place] once out of the hospital, with also knowledgeo f date of when woudl return home. He is not interested in medication options for depression or anxiety. He endorsed avodiance and sturggles with research related aspectso f his program but denied any other symptoms, (depression/anxiety/avoidance) on any other aspects of program or functioning prior to 2 weeks ago. He feels that now that he his Review of Systems Constitutional: No fever, No chills, No sweats, No weight loss, No weakness, No fatigue, No problem reported ENT: No hearing loss, No unusual epistaxis, No nasal symptoms, No sore throat, No tinnitus, No dental problems, No trouble swallowing, No problem reported Cardiovascular: No chest pain, No orthopnea, No PND, No edema, No claudication , No palpitations, No problem reported Abdomen: No pain, No nausea, No vomiting, No diarrhea, No constipation, No GI bleeding, No problem reported Psychiatric: No depression symptoms, No anhedonism, No anxiety, No insomnia, No substance abuse, No problem reported Sleep Information Total Hours of Sleep: 8.00 Meal Information Percent of Breakfast Consumed: 100 Percent of Lunch Consumed: 100 Percent of Dinner Consumed: 100 Mental Status Exam During interview pt is: alert and oriented Appearance: appropriately groomed Eye contact is: good Motor behavior is: no abnormal motor movements Speech: other (quiet) Affect: euthymic Mood is: other (good) Thought process: clear, coherent Thought content: reality based without delusions Suicidal thought are: denied Homicidal thoughts are: denied Hallucinations: denies auditory, denies visual Cognition: memory grossly intact, attention grossly intact, language grossly intact Intelligence estimated to be: consistent with level of education Insight: fair Judgement: impaired Impression 30 yo male s/p suicide attempt (Benadryl OD and cutting at throat requiring 6 sutures) with risk of financial issues given risk of not finishing his PhD and limited local support. He ultimately signed 201 voluntary. He is open to therapy appts. He is not open to antidepressant medication at this time. He states he has decided to withdraw from [employer] and return to [place] to live with parents. He is hesitant to do a family meeting with parents though. He is having a peer visit that appears to be go well. Pt does appear to be having a sense of relief over his decision but monitoring for flight into health over actual stabilization and aiming for more full risk mitigation given seriousness of suicidal behaviors. Plan (1) Depression 08/05--unspecified depressive disorder most appropriate diagnosis. The patient is admitted to [facility] ([facility]) on q 15 min checks ( behavioral with suicide precautions) for safety. The patient will participate in group, recreational and milieu therapies and will be offered additional individual and family sessions as clinically appropriate. Will discuss possible SSRI trial tomorrow as patient is currently overwhelmed. No evidence of anticholinergic delirium. Will not order prn Vistaril given amount of Benadryl, trazodone prn sleep instead. 08/06- pt refusing antidepressant med at this time. encouraging family meeting with mother, pt considering but was resistant as explaining and exploring this monitor for potential ongoing depressive/anxiety symptoms and for symptoms that could have been pre-dating past month and might go beyond just stemming from stressor that is being addressed. address withdrawal from [employer] plans. consider aftercare appt for once discharged but before leaves country, aiming to set up aftercare for [place] for once will be there. trazodone prn insomnia 08/07 pt not interested in antidepressant treatment. reporting improvement in mood as decided to leave Phd program. not yet open to family meeting by phone while on the unit with resistances to doing so that mortgage loan underwriter has been trying to work through. pt is open to therapy appts and given expecting leaving of the country within 2 weeks of discharge from hospital pt is open to the idea of an first appt with outpt provide such as [facility] as possible bridge appt if possible to arrange. sleep has been fine without use of trazodone to date. Pt engaging with peers who have been visiting. Discharge / Aftercare Planning Primary Care Physician: Name: [facility] Therapist: Name: greg [facility] Therapist: Name: greg Visit Code E&M Code: 65841 Inventory Assets Strengths: intelligence, close relationship with family in [place] Risk Factors Assessment Male: Yes /single/: Yes Higher / Fall in social status: Yes Protective Factors Assessment Employed: Yes Supportive family: Yes Data Vital Signs Last 24 Hrs: Date Time Temp Pulse Resp B/P (MAP) Pulse Ox O2 Delivery O2 Flow Rate FiO2 08/07/16 07:17 36.6 79 16 101/68 93 121/84
[2016-08-08 07:00] VITALS: BP_SYST 104; BP_SYST 117; BP_DIAS 68; BP_DIAS 83; PULSE 72; PULSE 76; TEMP 36.5
--- NOTE | 2016-08-08 13:17 | Discharge Instructions ---
Discharge Information Report Includes Report will include the: Discharge Instructions & Summary Admission Admission Date / Time: Aug 05, 2016 at 14:30 Reason for Admission: Depressive Disorder Discharge Discharge Diagnosis / Problem: Depression Condition at Discharge: Good Discharge Goals Goal(s): Decrease discomfort, Improve disease control, Prevent Disease Progression Activity Recommendations Activity Limitations: resume your previous activity . Instructions / Follow-Up Instructions / Follow-Up . SPECIAL CARE INSTRUCTIONS: 1. Follow through with your scheduled aftercare appointments. If unable to keep an appointment, please call to reschedule. 2. Take your medication only as prescribed. Medication should not be changed or stopped without the approval of your doctor. In the event of worsening symptoms or concerns about side effects, contact your doctor immediately. 3. Utilize new healthy coping skills, anger management skills, and stress management skills learned during your hospitalization. Journal feelings and process them with a support person. Identify stressors or situations that may result in relapse, deterioration or inappropriate behaviors and develop a plan to deal with those issues. 4. If your coping skills are ineffective and you are in crisis, contact your outpatient providers for direction. If unable to reach your providers, please call the CAN HELP LINE AT or go to the closest Emergency Room. 5. Avoid alcohol and un-prescribed drugs. 6. You have been provided with the Mental Health Advance Directives Pamphlet for your review. AFTERCARE APPOINTMENTS: * Please call your insurance company prior to your scheduled appointment to confirm your aftercare providers are covered. Take your insurance information to your appointments. . Discharge / Aftercare Planning Primary Care Physician: Name: [facility] Phone Number: [phone] Appointment Notes: as needed Therapist: Name Of Therapist: [facility] Phone Number: [phone] Date of Appointment: Aug 09, 2016 Time of Appointment: 2:00 Professional System Administrator: Name: greg . Follow-Up Care Plan for Follow-Up Care: The patient will have interim psychiatric care through [facility] until he departs for [place] Current Hospital Diet Patient's current hospital diet: Vegetarian Diet Discharge Diet Recommended Diet: Vegetarian Diet Procedures Procedures Performed: No Pending Studies Pending Studies at Discharge: No Medical Emergencies . Who to Call and When: Medical Emergencies: For questions or emergencies related to your hospital stay, please contact the Inpatient Behavioral Health Unit at [phone]. A rn child is on-call 12/09 for the Behavioral Health Unit for emergencies At any time you feel your situation is an emergency, you may also call 911 immediately. . Non-Emergent Contact Non-Emergency issues call your: Therapist Advance Directives Existing Advance Directive: No Do You Have an Existing Mental: No Existing Living Will: No Existing Power of Used Car Salesperson: No Advance Directives Info Given: To Pt/S.O. Advance Directives Reason: Declines as Mental Health Visit. Discharge Summary Admission HPI Per the Admitting provider: James denies any past psychiatric history, but acknowledges that he took 24 tabs of 25mg Benedryl at 3am on 08/04/2016 with suicidal ideation. He then states that at 9am on 08/04/2016 he used a kitchen knife to "slice" his throat, requiring 6 sutures in the ED at [facility]. James has been feeling depressed for 2 weeks about his inability to finish his PhD at [employer] [facility] [employer]. He notes sleep phase shift. James notes that for the past 2 weeks he has had intermittent suicidal ideations without a specific plan until last night. James also denies change in his levels of energy, concentration, appetite, psychomotor skills, and interest in things he normally enjoys. He states he only has funding for his PhD program through the summer, but does not think he will finish his project in time. He reports if he does not finish his degree before going back to [facility], he will have to pay back his program fee of about $200,000. James states that his current plan is to leave [place] and go back to [facility], where his entire support system (outside of 2 friends in the area) reside. He notes that once he is back in [place] [facility], he will figure out the financial repercussions remotely. Patient denies access to guns, feelings of anxiety, heart palpitations, panic, chest pain, psychosis, previous eating disorder, OCD tendencies, PTSD, and symptoms of leann. Hospital Course (1) Depression 08/05--unspecified depressive disorder most appropriate diagnosis. The patient is admitted to [facility] ([facility] inpatient mental health unit) on q 15 min checks ( behavioral with suicide precautions) for safety. The patient will participate in group, recreational and milieu therapies and will be offered additional individual and family sessions as clinically appropriate. Will discuss possible SSRI trial tomorrow as patient is currently overwhelmed. No evidence of anticholinergic delirium. Will not order prn Vistaril given amount of Benadryl, trazodone prn sleep instead. 08/06- pt refusing antidepressant med at this time. encouraging family meeting with mother, pt considering but was resistant as explaining and exploring this monitor for potential ongoing depressive/anxiety symptoms and for symptoms that could have been pre-dating past month and might go beyond just stemming from stressor that is being addressed. address withdrawal from [employer] plans. consider aftercare appt for once discharged but before leaves country, aiming to set up aftercare for [place] for once will be there. trazodone prn insomnia 08/07 pt not interested in antidepressant treatment. reporting improvement in mood as decided to leave Phd program. not yet open to family meeting by phone while on the unit with resistances to doing so that junior underwriter has been trying to work through. pt is open to therapy appts and given expecting leaving of the country within 2 weeks of discharge from hospital pt is open to the idea of an first appt with outpt provide such as [facility] as possible bridge appt if possible to arrange. sleep has been fine without use of trazodone to date. Pt engaging with peers who have been visiting. Risk Factors Assessment Male: Yes /single/: Yes Higher / Fall in social status: Yes Protective Factors Assessment Employed: Yes Supportive family: Yes Day of Discharge Assessment COURSE OF HOSPITALIZATION: During the patient's 3 day stay he declined the offer of antidepressants. He was able to process his stressors including the stress of not being able, nor wanting to complete his PhD program, and the need to repay the tuition debt. He was able to make a decision to return to [place] immediately, withdrawing from his PhD program. He is willing to accept the responsibility of the debt repayment, and feels that this is the only acceptable plan at this time. This has relieved him of his depressed mood, and now says that he feels it was "terrible" to let it get to this point, not realizing that he has a good support system and always has a way out of a problem. He does not have psychiatric providers but is willing to see someone locally until he is able to return to [place]. He has multiple sutures in his neck from the self inflicted cut, which is healing well. Sutures due to be removed on or about 08/10. He denied any further SI during his stay. DAY OF DISCHARGE ASSESSMENT: Today the patient is requesting discharge. With the help of the social work msw, he has contacted the university to clarify what is required to end his PhD studies. He has an appt with [facility] tomorrow at 2 pm for counseling. He plans to arrange for travel back to [place] in the next 1-2 weeks. He denies SI/HI. He is casually and appropriately dressed and groomed. Makes good eye contact. Affect is restricted, but able to smile. Gait and station are WNL. Speech is of normal rate volume and tone, with light mohawk accent. Thoughts are organized, goal directed, and without evidence of thought disorder. Recent/remote memory intact per conversation. Intelligence estimated to be average. Insight and judgment improved over admission. Laboratory Test 08/05/16 18:19 Thyroid Stimulating Hormone (TSH) 1.410 Total Time Total Time Spent (min): Greater than 30 minutes Total Time Included: examination of the patient, discharge planning, medication reconciliation, communication with other providers Tobacco Cessation at Discharge Smoking Status: Never Smoker FDA approved Prescription: non-smoker
== END 2016-08-08 15:08 | disposition home or self-care (01) | DRG 881 ==
LOC: C.MHU 14:30
PROVIDERS: ADMIT Psychiatry & Neurology Child & Adolescent Psychiatry; ATTEND Psychiatry & Neurology Child & Adolescent Psychiatry
DX: F32.9 Major depressive disorder, single episode, unspecified (principal); Z91.5 Personal history of self-harm; Z53.29 Procedure and treatment not carried out because of patient's decision for other reasons